=== PATIENT | female | born 1945 | race Hispanic/Latino ===

== ENCOUNTER 2021-03-16 11:18 | Outpatient (CLI) | payer MEDICARE, BC | END 2021-03-16 11:19 | disposition home or self-care (01) | LOC: CSHMAMMO 11:18 | PROVIDERS: ATTEND Internal Medicine | DX: Z12.31 Encounter for screening mammogram for malignant neoplasm of breast (principal) | CPT/HCPCS: 77063; 77067 ==

== ENCOUNTER 2023-04-30 15:04 | Emergency (ER) | payer MEDICARE, BC ==
[2023-04-30 15:32] LABS: #Basophils 0.1 10x3/uL (0.0-0.2); #Eosinphils 0.1 10x3/uL (0.0-0.5); #Monocytes 0.6 10x3/uL (0.0-1.1); #Neutrophils 5.1 10x3/uL (1.5-8.4); %Basophils 0.8 % (0.0-2.0); %Eosinophils 1.4 % (0.0-6.0); %Lymphocytes 25.5 % (18.0-47.0); %Monocytes 7.8 % (0.0-10.0); %Neutrophils 64.2 % (40.0-75.0); Hematocrit 36.7 % (34.9-44.5); Mean Corpuscular HGB CONC 32.7 g/dL (32.0-36.0); Mean Corpuscular Hemoglobin 30.8 pg (27.0-33.0); Mean Corpuscular Volume 94.3 fl (81.6-98.3); Mean Platelet Volume 10.7 fl (7.4-10.4); Platelet Count 232 10x3/uL (150-450); RBC Distribution Width 12.9 % (11.5-14.5); Red Blood Cell (RBC) Count 3.89 10x6/uL (3.90-5.03); White Blood Cell (WBC) Count 7.9 10x3/uL (3.5-10.5)
[2023-04-30 15:44] LABS: ALT (SGPT) 15 U/L (8-55); AST (SGOT) 33 U/L (5-34); Albumin 4.3 g/dL (3.4-4.8); Alkaline Phosphatase 59 U/L (40-110); Anion Gap 11 mmol/L (10-20); BUN (Urea Nitrogen) 15 mg/dL (9.8-20.1); Bilirubin, Total 0.2 mg/dL (0.2-1.2); Calc. Creatinine Clearance 0 mL/min (70-130); Calcium 9.7 mg/dL (7.8-10.44); Carbon Dioxide 28 mmol/L (23-31); Chloride 105 mmol/L (98-107); Estimated GFR 67; Glucose 95 mg/dL (83-110); Potassium 3.9 mmol/L (3.5-5.1); Protein, Total 7.3 g/dL (5.8-8.1); Sodium 140 mmol/L (136-145)
[2023-04-30 15:50] LABS: Troponin I Less than 0.010 ng/mL (< 0.028)
== END 2023-04-30 17:30 | disposition home or self-care (01) ==
LOC: CSHERS 15:04
DX: R07.9 Chest pain, unspecified (principal); R06.02 Shortness of breath; R53.1 Weakness
CPT/HCPCS: 71045; 80053; 84484; 85025; 93005

== ENCOUNTER 2024-03-13 11:21 | Emergency (ER) | payer MEDICARE, BC | END 2024-03-13 12:59 | LOC: CSHERS 11:21 | DX: S30.0XXA Contusion of lower back and pelvis, initial encounter (principal); M54.2 Cervicalgia; W19.XXXA Unspecified fall, initial encounter | CPT/HCPCS: 72040; 72220; 93005; 99283 ==